=== PATIENT | male | born 1990 | race Caucasian/White ===

== ENCOUNTER 2018-10-21 20:29 | Emergency (ER) | payer BC, OTHER ==
[~2018-10-21] VITALS: Ht 188 cm; Wt 83.5 kg
[~2018-10-21 20:29] MED LIST: ALPR.25T PO; CEPH-507 PO; CTLP20T PO; DOXY100C2 PO; IBUP-15 PO; LORA1TAB PO; MULT-963 PO; NAPR-243 PO; SULF1TAB35 PO; SULF1TAB38 PO; TRM50T PO
--- OUTSIDE RECORDS SUMMARY | 2018-10-21 20:36 | XMS REPORT ---
Author Author BERNARDINO HERNÁNDEZ Organization [facility] Address [address] [place] [address] Care Team Providers Care Engine Oiler Name Role Phone BERNARDINO HERNÁNDEZ Unavailable PROBLEMS Type Condition ICD9-CM Code [id number] Code Onset Dates Condition Status SNOMED Code Problem Generalized anxiety disorder F41.1 Active 32060918 Problem Panic attacks F41.0 Active 327607006 ALLERGIES No Information ENCOUNTERS Encounter Location Date Diagnosis [facility] [id number] [place] [phone] Apr, [facility] [id number] [place] [phone] Apr, [facility] [id number] [place] [phone] Feb, Panic attacks F41.0 and Generalized anxiety disorder F41.1 [facility] [id number] [place] [phone] Feb, Panic attacks F41.0 and Generalized anxiety disorder F41.1 [place] [id number] [place] [phone] Jan, Panic attacks F41.0 and Generalized anxiety disorder F41.1 IMMUNIZATIONS No Known Immunizations SOCIAL HISTORY Never Assessed REASON FOR VISIT Medication refill request PLAN OF CARE VITAL SIGNS MEDICATIONS Unknown Medications RESULTS No Results PROCEDURES No Known procedures INSTRUCTIONS MEDICATIONS ADMINISTERED No Known Medications MEDICAL (GENERAL) HISTORY Type Description Date Medical History anxeity Surgical History tonsillectomy 1998 Hospitalization History surgery 1998
--- OUTSIDE RECORDS SUMMARY | 2018-10-21 20:36 | XMS REPORT ---
Author Author BERNARDINO HERNÁNDEZ Organization [facility] Address [address] [place] [address] Care Team Providers Care Stave Log Ripsaw Operator Name Role Phone BERNARDINO HERNÁNDEZ Unavailable PROBLEMS Type Condition ICD9-CM Code [id number] Code Onset Dates Condition Status SNOMED Code Problem Generalized anxiety disorder F41.1 Active 72067856 Problem Panic attacks F41.0 Active [id number] ALLERGIES No Known Allergies ENCOUNTERS Encounter Location Date Diagnosis [facility] [id number] [place] [phone] Feb, Panic attacks F41.0 and Generalized anxiety disorder F41.1 [facility] [id number] [place] [phone] Feb, Panic attacks F41.0 and Generalized anxiety disorder F41.1 [facility] [id number] [place] [phone] Jan, Panic attacks F41.0 and Generalized anxiety disorder F41.1 IMMUNIZATIONS No Known Immunizations SOCIAL HISTORY Never Assessed REASON FOR VISIT anxiety --Pt in for follow up needing med refill WALLY Mcarthur PLAN OF CARE Activity Details Follow Up 2 Months Reason: VITAL SIGNS Height 73.8 in 2018-03-15 Weight 195.6 lbs 2018-03-15 Temperature 98.2 degrees Fahrenheit 2018-03-15 Heart Rate 84 bpm 2018-03-15 Respiratory Rate 18 2018-03-15 BMI 25.25 kg/m2 2018-03-15 Blood pressure systolic 144 mmHg 2018-03-15 Blood pressure diastolic 62 mmHg 2018-03-15 MEDICATIONS Medication Instructions Dosage Frequency Start Date End Date Duration Status Ativan 1 MG Orally twice a day prn anxiety 1 tablet at bedtime as needed Jan, 28 days Active Citalopram Hydrobromide 20 mg Orally Once a day 1 tablet 24h Jan, 30 day(s) Active RESULTS No Results PROCEDURES No Known procedures INSTRUCTIONS MEDICATIONS ADMINISTERED No Known Medications MEDICAL (GENERAL) HISTORY Type Description Date Medical History anxeity Surgical History tonsillectomy 1998 Hospitalization History surgery 1998
--- OUTSIDE RECORDS SUMMARY | 2018-10-21 20:36 | XMS REPORT ---
Author Author BERNARDINO HERNÁNDEZ [facility] Address [address] [place] [address] Care Team Providers Care Railroad Car Repair Supervisor Name Role Phone BERNARDINO HERNÁNDEZ Unavailable PROBLEMS ALLERGIES No Known Allergies ENCOUNTERS IMMUNIZATIONS No Known Immunizations SOCIAL HISTORY No smoking Hx information available REASON FOR VISIT PLAN OF CARE VITAL SIGNS MEDICATIONS RESULTS No Results PROCEDURES No Known procedures INSTRUCTIONS MEDICATIONS ADMINISTERED No Known Medications MEDICAL (GENERAL) HISTORY
--- OUTSIDE RECORDS SUMMARY | 2018-10-21 20:36 | XMS REPORT ---
Author Author BERNARDINO HERNÁNDEZ Organization [facility] Address [address] [place] [address] Care Team Providers Care Aligner Typewriter Name Role Phone BERNARDINO HERNÁNDEZ Unavailable PROBLEMS Type Condition ICD9-CM Code [id number] Code Onset Dates Condition Status SNOMED Code Problem Generalized anxiety disorder F41.1 Active 80016557 Problem Panic attacks F41.0 Active [id number] ALLERGIES No Information ENCOUNTERS Encounter Location Date Diagnosis [facility] [id number] [address] Feb, [facility] [address] [place] [address] Feb, Panic attacks F41.0 and Generalized anxiety disorder F41.1 [facility] [id number] [place] [phone] Jan, Panic attacks F41.0 and Generalized anxiety disorder F41.1 IMMUNIZATIONS No Known Immunizations SOCIAL HISTORY Never Assessed REASON FOR VISIT Lab (walk-in) PLAN OF CARE VITAL SIGNS MEDICATIONS Unknown Medications RESULTS No Results PROCEDURES Procedure Date Ordered Result Body Site ASSAY THYROID STIM HORMONE Feb 23, 2018 ASSAY OF FREE THYROXINE Feb 23, 2018 VENIPUNCT, ROUTINE* Feb 23, 2018 COMPREHEN METABOLIC PANEL Feb 23, 2018 LIPID PANEL Feb 23, 2018 09 PANEL (PROFILE 1) Feb 23, 2018 COMPLETE CBC W/AUTO DIFF WBC Feb 23, 2018 INSTRUCTIONS MEDICATIONS ADMINISTERED No Known Medications MEDICAL (GENERAL) HISTORY Type Description Date Medical History anxeity Surgical History tonsillectomy 1997 Hospitalization History surgery 1997
[2018-10-21] MEDS ORDERED: LIDOCAINE 1% INJ 20 ML 20 ML VIAL INJ ONE (20:45)
--- NOTE | 2018-10-21 21:02 | ED Integumentary General ---
General Chief Complaint: Laceration Stated Complaint: CUT LEFT ANKLE / TREE CLIMBING TOOL Nursing Triage Note: Pt accidentally stabbed his left ankle with a tree spike around 1700 tonight. Bleeding controlled. Source: patient Exam Limitations: no limitations History of Present Illness Date Seen by Provider: Oct 21, 2018 Time Seen by Provider: 20:40 Initial Comments 20-year-old male who presents to the emergency room with complaints of a stab wound to his left ankle. 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 He has a 2 cm laceration that is in the shape of the. Bleeding is controlled. He is able to move his left ankle without difficulty and wiggle his toes. Timing/Duration: just prior to arrival Associated Symptoms: denies symptoms Allergies and Home Medications Allergies Coded Allergies: Clindamycin HCl (Unverified Allergy, Intermediate, HIVES, 03/08/12) Clindamycin Palmitate HCl (Unverified Allergy, Intermediate, HIVES, 03/08/12) clindamycin phosphate (Unverified Allergy, Intermediate, HIVES, 03/08/12) Home Medications Cephalexin 500 Mg Capsule, 500 MG PO TID Prescribed by: KASIE PASTOR on 02/15/16 3055 Patient Home Medication List Home Medication List Reviewed: Yes Review of Systems Review of Systems Constitutional: see HPI; No chills, No fever Skin: see HPI, other (laceration to left inner ankle) All Other Systems Reviewed Negative Unless Noted: Yes Past Kziatru-Gwwwkm-Qdfrij Hx Past Med/Social Hx: Reviewed Nursing Past Med/Soc Hx Patient Social History Alcohol Use: Occasionally Uses Number of Drinks Today: AA Alcohol Beverage of Choice: Beer Recreational Drug Use: No Smoking Status: Current Everyday Smoker Type Used: Cigarettes 2nd Hand Smoke Exposure: Yes Recent Foreign Travel: No Contact w/Someone Who Travel: No Recent Infectious Disease Expo: No Recent Hopitalizations: No Immunizations Up To Date Tetanus Booster (TDap): Unknown Date of Influenza Vaccine: Jan 20, 2011 Seasonal Allergies Seasonal Allergies: No Past Medical History Surgeries: Yes (T&A 1997/ wisdom teeth removal 2010) Adenoidectomy, Tonsillectomy Respiratory: No Cardiac: No Neurological: Yes Concussion Reproductive Disorders: No Gastrointestinal: No Musculoskeletal: No Endocrine: No HEENT: No Tonsilitis Cancer: No Psychosocial: Yes Anxiety, Depression Integumentary: Yes (MRSA, CELLULITIS) Recent Skin Changes Blood Disorders: No Family Medical History Reviewed Nursing Family Hx Physical Exam Vital Signs Vital Signs - First Documented 10/21/18 20:35 Temp 97.9 Pulse 68 Resp 16 B/P (MAP) 151/86 (107) Pulse Ox 98 O2 Delivery Room Air Capillary Refill : Less Than 3 Seconds General Appearance: WD/WN, no apparent distress Cardiovascular: normal peripheral pulses, regular rate, rhythm, no edema, no gallop, no JVD, no murmur Respiratory: chest non-tender, lungs clear, normal breath sounds, no respiratory distress, no accessory muscle use Skin: normal color, warm/dry Skin Problem Location: lower extremities (left ankle medial side) Skin Problem Character: other (V-shaped 2 cm laceration) Procedures/Interventions Wound Location: Lower Extremities (left inner ankle) Wound's Depth, Shape: superficial, linear (V-shaped) Irrigated w/ Saline (ccs): 200 Anesthesia: 1% Lidocaine (2 mL) Suture: Prolene Suture Size: 4-0 Number of Sutures: 3 Progress The wound was cleaned and irrigated with normal saline and Betasept. The wound was anesthetized with 1% lidocaine without epinephrine. The wound was closed with 3 simple interrupted sutures of 4-0 Prolene. Progress/Results/Core Measures Results/Orders My Orders Orders - DERECK DEVLIN Lidocaine 1% Inj 20 Ml (Xylocaine 1% Inj (10/21/18 20:45) Medications Given in ED Vital Signs/I&O 10/21/18 10/21/18 20:35 21:14 Temp 97.9 Pulse 68 84 Resp 16 14 B/P (MAP) 151/86 (107) 156/71 (99) Pulse Ox 98 98 O2 Delivery Room Air Room Air Blood Pressure Mean: 107 Departure Impression Primary Impression: Laceration of left ankle Disposition: HOME, SELF-CARE Condition: Stable/Unchanged Departure-Patient Inst. Decision time for Depature: 21:01 Referrals: KASSIE CHILD DO (PCP/Family) Primary Care Physician Patient Instructions: Laceration Repair With Stitches (DC) Add. Discharge Instructions: Watch for signs of infection such as increased redness, swelling, drainage, pain. You may use Tylenol and ibuprofen as directed by the bottle for pain relief. Return back to the emergency room in 7 days to have the sutures removed. Follow-up with your primary care provider within 1 week for recheck. Return back to the emergency room for worsening symptoms or concerns as needed. All discharge instructions reviewed with patient and/or family. Voiced understanding. Work/School Note: Work Release Form Date Seen in the Emergency Department: Oct 21, 2018 Return to Work: Oct 24, 2018 Restrictions: No Restrictions DERECK DEVLIN Oct 21, 2018 21:02
[2018-10-21 21:14] VITALS: BP 156/71
== END 2018-10-21 21:15 | disposition home or self-care (01) ==
LOC: EDUNIT# 20:29 → ER 20:32
DX: S91.012A Laceration without foreign body, left ankle, initial encounter (principal); F41.9 Anxiety disorder, unspecified; F32.9 Major depressive disorder, single episode, unspecified; F17.210 Nicotine dependence, cigarettes, uncomplicated; Z86.14 Personal history of Methicillin resistant Staphylococcus aureus infection; Z90.89 Acquired absence of other organs; Z88.1 Allergy status to other antibiotic agents; W26.8XXA Contact with other sharp object(s), not elsewhere classified, initial encounter; Y92.59 Other trade areas as the place of occurrence of the external cause; Y99.0 Civilian activity done for income or pay
CPT/HCPCS: 12041

== ENCOUNTER 2021-06-15 23:43 | Emergency (ER) | payer BC, OTHER ==
[~2021-06-15 23:43] MED LIST changes: -SULF1TAB35 PO
[2021-06-16] MEDS ORDERED: RX-LORAZEPAM (ATIVAN) 0.5 MG TAB PPK#4 PO STA (01:57)
[2021-06-16] MEDS ORDERED: LORA-404 PO (02:04)
--- NOTE | 2021-06-16 02:04 | ED Psychosocial ---
General Chief Complaint: Psych/Social Disorder Stated Complaint: PANIC ATTACK Source: patient Exam Limitations: no limitations History of Present Illness Date Seen by Provider: Jun 16, 2021 Time Seen by Provider: 01:30 Initial Comments Patient to the ER by private conveyance with his spouse and mother and chief complaint that he had a worst of his life panic attack tonight. His mother finally gave him a Xanax which helped him. By time he got here his symptoms have abated. He had Neuro[employer]ision tingling fingers racing heart rate. He has a history of panic attacks. He was switched from citalopram to venlafaxine April 21 a month ago. He had Ativan available to him but it was taken away because his urine drug screen did not have Ativan in it. He states the Ativan was only as needed and he had not taken it recently. He does not have a counselor nor does he have a psychiatrist. He follows with Otto Coleman. Allergies and Home Medications Allergies Coded Allergies: Clindamycin HCl (Unverified Allergy, Intermediate, HIVES, 03/08/12) Clindamycin Palmitate HCl (Unverified Allergy, Intermediate, HIVES, 03/08/12) clindamycin phosphate (Unverified Allergy, Intermediate, HIVES, 03/08/12) Patient Home Medication List Home Medication List Reviewed: Yes Cephalexin (Keflex) 500 Mg Capsule, 500 MG PO TID Prescribed by: KASIE PASTOR on 02/15/16 3910 Review of Systems Constitutional: No chills, No diaphoresis EENTM: No ear discharge, No ear pain Respiratory: No cough, No short of breath Cardiovascular: No chest pain, No edema Gastrointestinal: No abdominal pain, No nausea, No vomiting Genitourinary: No discharge, No dysuria All Other Systems Reviewed Negative Unless Noted: Yes Past Zpvtgbs-Xrsfkw-Ottjnc Hx Patient Social History Tobacco Use?: Yes Tobacco type used: Cigarettes Use of E-Cig and/or Vaping dev: No Substance use?: No Alcohol Use?: Yes Alcohol type: Beer Alcohol Frequency: Daily Immunizations Up To Date Tetanus Booster (TDap): Unknown Seasonal Allergies Seasonal Allergies: No Past Medical History Surgeries: Yes (T&A 1997/ wisdom teeth removal 2010) Adenoidectomy, Tonsillectomy Respiratory: No Cardiac: No Neurological: Yes Concussion Reproductive Disorders: No Gastrointestinal: No Musculoskeletal: No Endocrine: No HEENT: No Tonsilitis Cancer: No Psychosocial: Yes Anxiety, Depression Integumentary: Yes (MRSA, CELLULITIS) Recent Skin Changes Blood Disorders: No Physical Exam Capillary Refill : Height, Weight, BMI Height: 6'2.00" Weight: 184lbs. oz. 83.288937lz; BMI Method:Stated General Appearance: WD/WN, no apparent distress HEENT: normal ENT inspection, pharynx normal Neck: non-tender, full range of motion, supple, normal inspection Respiratory: lungs clear, normal breath sounds, no respiratory distress, no accessory muscle use Cardiovascular: normal peripheral pulses, regular rate, rhythm Peripheral Pulses: 2+ Radial Pulses (R), 2+ Radial Pulses (L) Gastrointestinal: normal bowel sounds, non tender, soft Neurologic/Psychiatric: alert, normal mood/affect, oriented x 3 Appearance/Memory: appropriate appearance, appropriate insight Behavior/Eye Contact: cooperative, good eye contact Thoughts/Hallucinations: normal thought pattern, no apparent hallucination; No auditory hallucinations, No paranoid; other (Negative for suicidal homicidal ideation) Procedures/Interventions Suture Size: 4-0 Progress/Results/Core Measures Results/Orders My Orders Orders - KRYSTAL STARKS Rx-Lorazepam (Rx-Ativan) (06/16/21 01:57) Progress Progress Note : Time: 02:01 Progress Note Patient symptoms have abated. We will provide him with a little Ativan to try and encourage him to follow with a counselor and psychiatrist. Departure Impression Primary Impression: Panic attack Disposition: 01 HOME, SELF-CARE Condition: Stable Departure-Patient Inst. Decision time for Depature: 02:02 Referrals: OTTO COLEMAN (PCP/Family) Primary Care Physician Patient Instructions: Panic Disorder (DC) Add. Discharge Instructions: At the first sign of a panic attack take half a milligram of Ativan every 6 hours as necessary. Follow-up with your primary care doctor to discuss your Effexor. Call [phone] if you are in crisis or during those hours to get set up with a psychiatrist and a counselor. All discharge instructions reviewed with patient and/or family. Voiced understa nding. Scripts Lorazepam (Ativan) 0.5 Mg Tablet 0.5 MG PO Q6H PRN for ANXIETY for 7 Days, #10 TAB 0 Refills Prov: KRYSTAL STARKS 06/16/21 Copy Copies To 1: JULIO MARK DO KRYSTAL STARKS Jun 16, 2021 02:04
[2021-06-16 02:12] VITALS: BP 141/79
== END 2021-06-16 02:12 | disposition home or self-care (01) ==
LOC: EDUNIT# 23:43 → ER 23:46
DX: F41.0 Panic disorder [episodic paroxysmal anxiety] (principal)
CPT/HCPCS: 99281